=== PATIENT | female | born 1990 | race Caucasian/White ===

== ENCOUNTER 2017-02-18 10:53 | Emergency (ER) | payer MEDICAID | END 2017-02-18 11:35 | disposition left against medical advice (07) | DX: Z53.21 Procedure and treatment not carried out due to patient leaving prior to being seen by health care provider (principal) ==

== ENCOUNTER 2017-02-20 15:56 | Emergency (ER) | payer MEDICAID ==
[2017-02-20] MEDS ORDERED: CIPROFLOXACIN 400 MG/200 ML 200 ML IV ONE ×2 (18:55→18:56)
[2017-02-20] MEDS ORDERED: SODIUM CHLORIDE 0.9% 1,000 ML IV ONE ×2 (18:59→21:16)
[2017-02-20] MEDS ORDERED: ONDANSETRON 4 MG/2 ML VIAL IVP STA (21:16)
[2017-02-20] MEDS ORDERED: ONDANSETRON 4 MG/2 ML VIAL ONE (21:20)
== END 2017-02-20 22:55 | disposition short-term general hospital (02) ==
DX: K80.43 Calculus of bile duct with acute cholecystitis with obstruction (principal); E66.01 Morbid (severe) obesity due to excess calories; Z68.43 Body mass index [BMI] 50.0-59.9, adult

== ENCOUNTER 2017-02-20 22:47 | Outpatient (CLI) | payer MEDICAID | END 2017-02-20 22:48 | disposition short-term general hospital (02) | DX: R10.9 Unspecified abdominal pain (principal); R11.2 Nausea with vomiting, unspecified | CPT/HCPCS: A0170; A0425; A0426 ==

== ENCOUNTER 2017-09-20 15:33 | Emergency (ER) | payer MEDICAID ==
--- NOTE | 2017-09-20 16:51 | ED Physician Documentation ---
History of Present Illness - Stated complaint Stated Complaint: SORE THROAT - Chief complaint Chief Complaint: Heent - Additonal information Additional information: hx from pt healthy 27 y/o f denies preg sore throat ear pain mild cough feels like swallowing glass kids with similar Review of Systems Constitutional: denies: Fever Ears: reports: Ear pain Throat: reports: Sore throat Respiratory: reports: Cough GI: denies: Vomiting, Diarrhea : denies: Now EGA Immunocompromised: denies: Immunocompromised PD PAST MEDICAL HISTORY - Past Medical History Past Medical History: Yes Psych: Depression - Past Surgical History Past Surgical History: Yes General: Cholecystectomy - Present Medications Home Medications: Ambulatory Orders Medication Instructions Recorded Confirmed Control tab PO DAILY 02/20/17 Sertraline [Zoloft] 50 mg PO DAILY 09/20/17 09/20/17 - Allergies Allergies/Adverse Reactions: Allergies Allergy/AdvReac Type Severity Reaction Status Date / Time Penicillins Allergy Rash Verified 09/20/17 16:10 - Social History Does the pt smoke?: No Smoking Status: Never smoker Does the pt drink ETOH?: No Does the pt have substance abuse?: No - Immunizations Immunizations are current?: Yes PD ED PE NORMAL - Vitals Vital signs reviewed: Yes - HEENT HEENT: Ears normal, Moist mucous membranes. No: Pharynx benign (erytehma no exudate to [employer]) - Neck Neck: Supple, no meningeal sign. No: No adenopathy (anterior R > L) - Cardiac Cardiac: RRR - Respiratory Respiratory: No respiratory distress, Clear bilaterally Results - Vitals Vitals: Vital Signs - 24 hr 09/20/17 16:07 Temperature 36.4 C L Heart Rate 99 Respiratory 16 Rate Blood Pressure 157/95 H O2 Saturation 99 Oxygen O2 Source Room air - Labs Labs: Laboratory Tests 09/20/17 16:23 Group A Strep Rapid Negative PD MEDICAL DECISION MAKING - ED course ED course: pt declined cepacol and decadron Departure - Departure Disposition: 01 Home, Self Care Clinical Impression: Pharyngitis Qualifiers: Pharyngitis/tonsillitis etiology: unspecified etiology Qualified Code(s): J02.9 - Acute pharyngitis, unspecified Condition: Good Instructions: ED Pharyngitis Viral Report Pending Follow-Up: Jason Higuera MD [Primary Care Provider] - Comments: The rapid strep test was negative A throat culture will also be run and should be resulted in 3 days - if it is positive we will call you to start antibiotics. For now the treatment is symptomatic with throat lozenges motrin and tylenol Please get your blood pressure rechecked when you are feeling better - it was high today Forms: Activity restrictions
[2017-09-20 16:58] LABS: RAPID STREP SCREEN REAGENT QC YELLOW (YELLOW)
[2017-09-20 17:27] VITALS: BP 137/92
== END 2017-09-20 17:26 | disposition home or self-care (01) ==
LOC: ED 15:33
DX: J02.9 Acute pharyngitis, unspecified (principal)
CPT/HCPCS: 87070; 87430; 99282; 99283

== ENCOUNTER 2018-01-27 13:20 | Outpatient (CLI) | payer MEDICAID ==
--- NOTE | 2018-01-27 16:58 | XRAY Report ---
LUMBAR SPINE THREE VIEWS: 01/27/2018 HISTORY: Back pain. FINDINGS: The lumbar vertebral bodies are normal in height and alignment. There is mild disk space narrowing at L4-L5 and L5-S1. Schmorl's nodes are present at L2-3. Remaining disk spaces are well maintained. Surgical clips right upper quadrant. No compression fracture or bone destruction. Sacroiliac joints grossly unremarkable. IMPRESSION: EARLY DEGENERATIVE DISK DISEASE AT L4-L5 AND L5-S1, OTHERWISE NEGATIVE THREE VIEW LUMBAR SPINE. TD: 01/27/2018 16:58 KARL
--- NOTE | 2018-01-27 17:00 | XRAY Report ---
THORACIC SPINE: 01/27/2018 HISTORY: Back pain. COMPARISON: Chest x-ray 09/12/2016. FINDINGS: The thoracic vertebral bodies are grossly normal in height and alignment. Minor mid thoracic dextroscoliosis may be present. There is no evidence of compression fracture or bone destruction. Disk space heights are grossly well maintained. IMPRESSION: MINIMAL THORACIC DEXTROSCOLIOSIS. OTHERWISE NEGATIVE. TD: 01/27/2018 16:59 [facility]
== END 2018-01-27 13:21 | disposition home or self-care (01) ==
LOC: DI.N 13:20
PROVIDERS: ATTEND Nurse Practitioner
DX: M51.36 Other intervertebral disc degeneration, lumbar region (principal); M51.37 Other intervertebral disc degeneration, lumbosacral region; M41.84 Other forms of scoliosis, thoracic region
CPT/HCPCS: 72070; 72100

== ENCOUNTER 2018-08-26 12:00 | Outpatient (CLI) | payer MEDICAID | END 2018-08-26 12:01 | disposition home or self-care (01) | LOC: LAB.R 12:00 | PROVIDERS: ATTEND Physician Assistant Medical | DX: N89.8 Other specified noninflammatory disorders of vagina (principal); L29.8 Other pruritus | CPT/HCPCS: 87491; 87591 ==

== ENCOUNTER 2018-08-30 21:08 | Emergency (ER) | payer MEDICAID ==
--- NOTE | 2018-08-30 21:21 | ED Physician Documentation ---
PD HPI URI - Stated complaint Stated Complaint: CHEST PX - Chief complaint Chief Complaint: Cardiac - History obtained from History obtained from: Patient - History of Present Illness Timing - onset: How many days ago (2) Timing duration: Days Timing details: Gradual onset, Still present, Intermittant Associated symptoms: Nasal congestion, Dry cough. No: Fever, Chills, Sore throat, Bilateral edema Contributing factors: No: Sick contact, Travel, Immunocompromised Improves by: Rest Worsened by: Breathing Similar symptoms before: Has not had sx before Recently seen: Clinic (seen by PMD clinc and got Rx Tessalon, which has not helped the pain nor cough much.) Review of Systems Constitutional: reports: Chills, Myalgias Nose: reports: Congestion Cardiac: reports: Chest pain / pressure (just today) Respiratory: reports: Dyspnea, Cough GI: denies: Abdominal Pain, Nausea, Vomiting Skin: denies: Rash, Lesions PD PAST MEDICAL HISTORY - Past Medical History Cardiovascular: None Respiratory: None Neuro: None Psych: Depression - Past Surgical History Past Surgical History: Yes General: Cholecystectomy - Present Medications Home Medications: Ambulatory Orders Medication Instructions Recorded Confirmed Control tab PO DAILY 02/20/17 Sertraline [Zoloft] 50 mg PO DAILY 09/20/17 08/30/18 Benzonatate [Tessalon Perle] 1 cap PO TID 08/30/18 08/30/18 Dexamethasone [Decadron] 4 mg PO DAILY #5 tablet 08/30/18 HYDROcod/ACETAM 5/325 [Keene 5/325] 1 tab PO Q6H PRN #25 tablet 08/30/18 Naproxen 375 mg PO BID #20 tablet 08/30/18 - Allergies Allergies/Adverse Reactions: Allergies Allergy/AdvReac Type Severity Reaction Status Date / Time Penicillins Allergy Rash Verified 08/30/18 21:29 - Living Situation Living Arrangement: reports: At home - Social History Does the pt smoke?: No Smoking Status: Never smoker Does the pt drink ETOH?: No Does the pt have substance abuse?: No - Immunizations Immunizations are current?: Yes PD ED PE NORMAL - Vitals Vital signs reviewed: Yes - General General: Alert and oriented X 3, No acute distress, Well developed/nourished - HEENT HEENT: Pharynx benign - Neck Neck: Supple, no meningeal sign, No adenopathy - Cardiac Cardiac: RRR, No murmur Results - Vitals Vitals: Oxygen O2 Source Room air - EKG (time done) 21:16 Rate: Rate (enter#) (84) Rhythm: NSR [place]: Normal Intervals: Normal MD QRS: Normal Ischemia: Normal ST segments. No: ST elevation c/w ischemia, ST depression - Rads (name of study) chest xray Radiology: Prelim report reviewed, EMP read contemporaneously (no acute process) Departure - Departure Disposition: Home, Self Care Clinical Impression: Persistent cough for 3 weeks or longer Chest pain Qualifiers: Chest pain type: chest pain on breathing Qualified Code(s): R07.1 - Chest pain on breathing Condition: Stable Record reviewed to determine appropriate education?: Yes Instructions: ED Upper Resp Infec No Abx Tx, ED Chest Pain Pleurisy Follow-Up: Edwar Clement PA-C [Primary Care Provider] - Prescriptions: Dexamethasone [Decadron] 4 mg PO DAILY #5 tablet HYDROcod/ACETAM 5/325 [Keene 5/325] 1 tab PO Q6H PRN #25 tablet PRN Reason: Pain Naproxen 375 mg PO BID #20 tablet Comments: Presume this was likely a viral illness or such that his left a persistent cough. Typical that some inflammation through the bronchioles and we treated with some steroid anti-inflammatory daily for the next 5 days. Also naproxen nonsteroidal anti-inflammatory to help with the chest pain. To that add hydrocodone if needed for cough or pain. Drink lots of fluids. See if this improves over the next several days to a week. Discharge Date/Time: 08/30/18 22:28
[2018-08-30] MEDS ORDERED: DEXAMETHASONE 10 MG/ML VIAL PO STA (21:37)
[2018-08-30] MEDS ORDERED: ALBUTEROL NEB 2.5 MG/3 ML INH STA (21:37)
[2018-08-30] MEDS ORDERED: NAPROXEN 250 MG TABLET PO STA (21:37)
[2018-08-30] MEDS ORDERED: HYDROcod/ACETAM 5/325 MG TABLET PO STA (21:37)
--- NOTE | 2018-08-30 22:01 | XRAY Report ---
Reason: chest pain left sided Procedure Date: 08/30/2018 Accession Number: [id number] / [id number] Procedure: XR - Chest 2 View X-Ray CPT Code: 15187 FULL RESULT: EXAM: CHEST RADIOGRAPHY EXAM DATE: 08/30/2018 09:48 PM. CLINICAL HISTORY: Chest pain, left sided. COMPARISON: CHEST 2 VIEW PA/LAT 09/12/2016 10:37 AM. TECHNIQUE: 2 views. FINDINGS: Lungs/Pleura: No focal opacities evident. No pleural effusion. No pneumothorax. Normal volumes. Mediastinum: Heart and mediastinal contours are unremarkable. Other: No bony abnormalities noted. IMPRESSION: Normal 2-view chest radiography. RADIA
[2018-08-30] MEDS ORDERED: HYDROcod/ACET 5/325 Prepack 4 PO STA (22:09)
[2018-08-30 22:17] VITALS: BP 143/97
== END 2018-08-30 22:28 | disposition home or self-care (01) ==
LOC: ED 21:08
DX: R05 Cough (principal); R07.1 Chest pain on breathing
CPT/HCPCS: 71046; 93005; 94640; 99283; A9270

== ENCOUNTER 2018-11-14 15:41 | Outpatient (CLI) | payer MEDICAID | END 2018-11-14 23:59 | disposition home or self-care (01) | LOC: LAB.R 15:41 | PROVIDERS: ATTEND Nurse Practitioner | DX: A59.09 Other urogenital trichomoniasis (principal) | CPT/HCPCS: 87480; 87510; 87660 ==

== ENCOUNTER 2019-11-13 13:53 | Outpatient (CLI) | payer MEDICAID ==
--- NOTE | 2019-11-14 00:58 | XRAY Report ---
Reason: CHRONIC COUGH Procedure Date: 11/13/2019 Accession Number: [id number] / [id number] Procedure: XRN - Chest 2 View X-Ray CPT Code: 34846 Final Report FULL RESULT: EXAM: CHEST RADIOGRAPHY EXAM DATE: 11/13/2019 02:06 PM. CLINICAL HISTORY: CHRONIC COUGH. COMPARISON: CHEST 2 VIEW 08/30/2018 9:40 PM. TECHNIQUE: 2 views. FINDINGS: Lungs/Pleura: No dense consolidation. No large effusion or pneumothorax. No pulmonary edema. Mediastinum: Heart and mediastinal contours are unremarkable. Other: None. IMPRESSION: No acute radiographic pulmonary abnormalities. RADIA
== END 2019-11-13 13:54 | disposition home or self-care (01) ==
LOC: DI.N 13:53
PROVIDERS: ATTEND Physician Assistant Medical
DX: R05 Cough (principal)
CPT/HCPCS: 71046

== ENCOUNTER 2020-10-18 14:22 | Outpatient (CLI) | payer MEDICAID ==
[2020-10-18 18:10] LABS: BASOPHILS # (AUTO) 0.1 10^3/uL (0.0-0.1); BASOPHILS % (AUTO) 1.1 %; EOSINOPHILS # (AUTO) 0.3 10^3/uL (0.0-0.7); EOSINOPHILS % (AUTO) 3.5 %; HGB - HEMOGLOBIN 13.1 g/dL (12.0-16.0); LYMPHOCYTES # (AUTO) 3.4 10^3/uL (1.5-3.5); LYMPHOCYTES % (AUTO) 36.1 %; MEAN CORPUSCULAR HGB CONC 30.3 g/dL (32.0-36.0); MEAN CORPUSCULAR VOLUME 88.9 fL (81.0-99.0); MONOCYTES # (AUTO) 0.6 10^3/uL (0.0-1.0); MONOCYTES % (AUTO) 6.2 %; NEUTROPHILS % (AUTO) 52.8 %; PLT - PLATELET COUNT 450 10^3/uL (130-450); RED BLOOD COUNT 4.86 10^6/uL (4.20-5.40); RED CELL DISTRIBUTION WIDTH 13.1 % (12.0-15.0); WHITE BLOOD COUNT 9.5 x10^3/uL (4.8-10.8)
[2020-10-18 18:47] LABS: ALBUMIN 4.2 g/dL (3.2-5.5); ALBUMIN/GLOBULIN RATIO 1.4 (1.0-2.2); ALKALINE PHOSPHATASE 78 IU/L (42-121); ALT ALANINE AMINOTRANSFERASE 40 IU/L (10-60); AST ASPARTATE AMINOTRANSFERASE 34 IU/L (10-42); BILIRUBIN,TOTAL 0.5 mg/dL (0.2-1.0); BUN - BLOOD UREA NITROGEN 13 mg/dL (6-20); CALCIUM 9.2 mg/dL (8.5-10.3); CARBON DIOXIDE - CO2 27 mmol/L (21-32); CHLORIDE 103 mmol/L (101-111); CHOL/HDL RATIO 4.2 (<4.4); CHOLESTEROL 237 mg/dL; CREATININE 0.7 mg/dL (0.4-1.0); GLUCOSE 91 mg/dL (70-100); HDL CHOLESTEROL 57 mg/dL; LDL CHOLESTEROL,CALCULATED 158 mg/dL; LDL/HDL RATIO 2.8 (<4.4); SODIUM 137 mmol/L (135-145); TOTAL PROTEIN 7.3 g/dL (6.7-8.2); VLDL CHOLESTEROL 22 mg/dL
[2020-10-18 20:34] LABS: HEMOGLOBIN A1c% 5.1 % (4.27-6.07)
== END 2020-10-18 14:23 | disposition home or self-care (01) ==
LOC: LAB.WCP 14:22
PROVIDERS: ATTEND Nurse Practitioner Family
DX: I10 Essential (primary) hypertension (principal); E66.01 Morbid (severe) obesity due to excess calories
CPT/HCPCS: 36415; 80053; 80061; 83036; 83721; 84443; 85025

== ENCOUNTER 2022-12-21 08:56 | Outpatient (CLI) | payer OTHER, MEDICAID ==
[2022-12-21 11:58] LABS: BASOPHILS # (AUTO) 0.1 10^3/uL (0.0-0.1); BASOPHILS % (AUTO) 1.1 %; EOSINOPHILS # (AUTO) 0.4 10^3/uL (0.0-0.7); HCT - HEMATOCRIT 42.2 % (37.0-47.0); LYMPHOCYTES # (AUTO) 2.9 10^3/uL (1.5-3.5); LYMPHOCYTES % (AUTO) 40.2 %; MEAN CORPUSCULAR HEMOGLOBIN 26.1 pg (27.0-31.0); MEAN CORPUSCULAR HGB CONC 30.8 g/dL (32.0-36.0); MEAN CORPUSCULAR VOLUME 84.6 fL (81.0-99.0); MEAN PLATELET VOLUME 9.3 fL (7.9-10.8); MONOCYTES # (AUTO) 0.4 10^3/uL (0.0-1.0); MONOCYTES % (AUTO) 5.6 %; NEUTROPHILS # (AUTO) 3.5 10^3/uL (1.5-6.6); NEUTROPHILS % (AUTO) 48.1 %; PLT - PLATELET COUNT 412 10^3/uL (130-450); RED BLOOD COUNT 4.99 10^6/uL (4.20-5.40); RED CELL DISTRIBUTION WIDTH 13.4 % (12.0-15.0); WHITE BLOOD COUNT 7.3 x10^3/uL (4.8-10.8)
[2022-12-21 12:21] LABS: ALBUMIN 3.5 g/dL (3.2-5.5); ALKALINE PHOSPHATASE 76 IU/L (42-121); ALT ALANINE AMINOTRANSFERASE 15 IU/L (10-60); AST ASPARTATE AMINOTRANSFERASE 16 IU/L (10-42); BILIRUBIN,TOTAL 0.7 mg/dL (0.2-1.0); BUN - BLOOD UREA NITROGEN 13 mg/dL (6-20); CALCIUM 8.8 mg/dL (8.5-10.3); CARBON DIOXIDE - CO2 29 mmol/L (21-32); CHLORIDE 102 mmol/L (101-111); CHOL/HDL RATIO 5.7 (<4.4); CHOLESTEROL 272 mg/dL; CREATININE 0.8 mg/dL (0.4-1.0); GFR - MDRD 83 (>89); GLUCOSE 100 mg/dL (70-100); HDL CHOLESTEROL 48 mg/dL; LDL CHOLESTEROL,CALCULATED 199 mg/dL; LDL/HDL RATIO 4.1 (<4.4); POTASSIUM 4.1 mmol/L (3.5-5.0); SODIUM 135 mmol/L (135-145); TOTAL PROTEIN 7.1 g/dL (6.7-8.2); TRIGLYCERIDES 124 mg/dL; VLDL CHOLESTEROL 25 mg/dL
[2022-12-21 12:25] LABS: THYROID STIMULATING HORMONE 0.83 uIU/mL (0.34-5.60)
[2022-12-21 13:12] LABS: ESTIMATED AVERAGE GLUCOSE 105 mg/dL (70-100); HEMOGLOBIN A1c% 5.3 % (4.27-6.07)
== END 2022-12-21 08:57 | disposition home or self-care (01) ==
LOC: LAB.N 08:56
PROVIDERS: ATTEND Physician Assistant Medical
DX: I10 Essential (primary) hypertension (principal); E66.01 Morbid (severe) obesity due to excess calories
CPT/HCPCS: 36415; 80053; 80061; 83036; 83721; 84443; 85025

== ENCOUNTER 2024-06-20 18:41 | Emergency (ER) | payer MEDICAID, OTHER ==
--- NOTE | 2024-06-20 19:30 | ED Physician Documentation ---
History of Present Illness - Stated complaint Stated Complaint: HEAD/BODY PX/SOA - Chief complaint Chief Complaint: General - Additonal information Additional information: 33-year-old female presents to the emergency department chief complaint of fever, chills, cough, congestion, headache. Symptoms ongoing x 3-4 days. Reports headache that is global, not maximal at time of onset, not associated withNeck stiffness, blurred vision, double vision. Also reports cough, congestion and shortness of breath with exertion. States had a negative home COVID test. Review of Systems Constitutional: reports: Fever Eyes: denies: Loss of vision Ears: denies: Loss of hearing Nose: reports: Congestion Respiratory: reports: Dyspnea, Cough GI: denies: Abdominal Pain, Nausea, Vomiting, Constipation, Diarrhea : denies: Dysuria Skin: denies: Rash Musculoskeletal: denies: Neck pain Neurologic: reports: Headache. denies: Generalized weakness, Focal weakness, Numbness PD PAST MEDICAL HISTORY - Past Medical History Past Medical History: Yes Cardiovascular: None Respiratory: None Neuro: None Psych: Depression - Past Surgical History Past Surgical History: Yes General: Cholecystectomy - Present Medications Home Medications: Ambulatory Orders Medication Instructions Recorded Confirmed Control tab PO DAILY 02/20/17 Sertraline [Zoloft] 50 mg PO DAILY 09/20/17 06/20/24 - Allergies Allergies/Adverse Reactions: Allergies Allergy/AdvReac Type Severity Reaction Status Date / Time Penicillins Allergy Rash Verified 06/20/24 18:46 - Social History Does the pt smoke?: No Smoking Status: Never smoker Does the pt drink ETOH?: No Does the pt have substance abuse?: No - Immunizations Immunizations are current?: Yes PD ED PE NORMAL - Vitals Vital signs reviewed: Yes - General General: Alert and oriented X 3, No acute distress, Well developed/nourished - HEENT HEENT: Atraumatic, PERRL, EOMI, Ears normal, Moist mucous membranes, Pharynx benign - Neck Neck: Supple, no meningeal sign, No JVD, No bruit - Cardiac Cardiac: RRR, No gallop - Respiratory Respiratory: No respiratory distress - Abdomen Abdomen: Normal bowel sounds, Non tender - Female Female : Deferred - Rectal Rectal: Deferred - Derm Derm: Normal color - Extremities Extremities: No deformity - Neuro Neuro: Alert and oriented X 3, ammonia worker 2-12 intact, No motor deficit, No sensory deficit, Normal speech Results - Vitals Vitals: Vital Signs - 24 hr 06/20/24 18:47 Temperature 39.0 C H Heart Rate 100 Respiratory 22 Rate Blood Pressure 180/88 H O2 Saturation 97 Oxygen O2 Source Room air - Labs Labs: Laboratory Tests 06/20/24 18:50 Nasal Adenovirus (PCR) NOT DETECTED Nasal B. parapertussis DNA (PCR) NOT DETECTED Nasal Coronavir 229E PCR NOT DETECTED Nasal Coronavir HKU1 PCR NOT DETECTED Nasal Coronavir NL63 PCR NOT DETECTED Nasal Coronavir OC43 PCR NOT DETECTED Nasal Enterovir/Rhinovir PCR NOT DETECTED Nasal Influenza B PCR NOT DETECTED Nasal Influenza A PCR NOT DETECTED Nasal Parainfluen 1 PCR NOT DETECTED Nasal Parainfluen 2 PCR NOT DETECTED Nasal Parainfluen 3 PCR NOT DETECTED Nasal Parainfluen 4 PCR NOT DETECTED Nasal RSV (PCR) NOT DETECTED Nasal B.pertussis DNA PCR NOT DETECTED Nasal C.pneumoniae (PCR) NOT DETECTED Dandre Human Metapneumo PCR NOT DETECTED Nasal M.pneumoniae (PCR) NOT DETECTED Nasal SARS-CoV-2 (PCR) DETECTED A PD Medical Decision Making - ED course Complexity details: reviewed results, re-evaluated patient ED course: 33-year-old female presents 3-day history of fever, headache, cough, congestion. No known sick contacts. Reported negative home COVID test. Febrile 39 0 on arrival. The patient mentating well. No nuchal rigidity. No focal lateralizing neurologic deficits. Nothing to suggest meningitis or encephalitis. Clear aeration in all lung rg. Did endorse for shortness of breath with physical exertion. Of note has significant obesity body habitus. SARS COVID-positive. Chest x-ray negative. Patient denies dysuria or urinary tract style symptoms. Given Compazine, Benadryl, Toradol with some symptomatic relief. Discussed nature SARS COVID virus, Expected course, importance ofHand washing, infection prevention. Discussed [id number] medications that can be used to help with symptoms. Encourage careful follow-up with primary care. Clear return precautions given. Departure - Departure Disposition: 01 Home, Self Care Clinical Impression: COVID-19 Instructions: ED Viral Syndrome Comments: Thank you for allowing us to care for you today at [facility]. Today in the emergency department you were evaluated for any possible dangerous or life-threatening medical emergency. You are diagnosed with the SARS COVID virus. Attached some information about typical viral syndromes. For most individuals COVID is 7 to 10 days of fever, chills, body ache, headache, cough, congestion. Some individuals do develop increased respiratory distress and if you find yourself having increasing shortness of breath at home please return to the emergency department. [id number] medications such as Tylenol, ibuprofen, Sudafed, Mucinex can be used to help with symptoms. Please work towards staying well-hydrated. Please follow-up with your primary care doctor soon as possible. If it anytime you have new or worsening symptoms please not hesitate to return. Forms: PCP List
[2024-06-20] MEDS: PROCHLORPERAZINE 10 MG/2 ML VIAL IM STA (19:45)
[2024-06-20] MEDS: KETOROLAC 60 MG/2 ML VIAL IM STA (19:50)
[2024-06-20] MEDS: diphenhydrAMINE INJ 50 MG/ML VIAL IM STA (19:51)
[2024-06-20 19:52] LABS: B. PARAPERTUSSIS- RESP PCR PAN NOT DETECTED; B. PERTUSSIS- RESP PCR PANEL NOT DETECTED; C. PNEUMONIAE- RESP PCR PANEL NOT DETECTED; CORONAVIRUS 229E-RESP PCR NOT DETECTED; CORONAVIRUS HKU1-RESP PCR NOT DETECTED; CORONAVIRUS NL63-RESP PCR NOT DETECTED; CORONAVIRUS OC43-RESP PCR NOT DETECTED; HUMAN METAPNEUMOVIRUS NOT DETECTED; INFLUENZA A- RESP PCR PANEL NOT DETECTED; INFLUENZA B - RESP PCR PANEL NOT DETECTED; M. PNEUMONIAE- RESP PCR PANEL NOT DETECTED; PARAINFLUENZA VIRUS 1 NOT DETECTED; PARAINFLUENZA VIRUS 2 NOT DETECTED; PARAINFLUENZA VIRUS 3 NOT DETECTED; PARAINFLUENZA VIRUS 4 NOT DETECTED; RHINOVIRUS/ENTEROVIRUS NOT DETECTED; RSV- RESP PCR PANEL NOT DETECTED
[2024-06-20 19:53] LABS: SARS-CoV-2 -RESP PCR PANEL DETECTED
--- NOTE | 2024-06-20 20:27 | XRAY Report ---
PROCEDURE: Chest 1V INDICATIONS: chest pain TECHNIQUE: One view of the chest was acquired. COMPARISON: 06/06/2020. FINDINGS: Surgical changes and devices: None. Lungs and pleura: No pleural effusions or pneumothorax. Lungs are clear. Mediastinum: Mediastinal contours appear normal. Heart size is normal. Bones and chest wall: No suspicious bony lesions. Overlying soft tissues appear unremarkable. IMPRESSION: No acute cardiopulmonary process. Reviewed by: Aren Jensen MD on 06/20/2024 8:26 PM PDT Approved by: Aren Jensen MD on 06/20/2024 8:26 PM PDT Station ID: [id number]
[2024-06-20 20:48] VITALS: BP 144/65; O2SAT 99
== END 2024-06-20 20:43 | disposition home or self-care (01) ==
LOC: ED 18:41
DX: U07.1 COVID-19 (principal)
CPT/HCPCS: 71045; 87633; 96372; 99283; J1200